=== PATIENT | male | born 1940 | race Caucasian/White ===

== ENCOUNTER → 2016-11-02 | Outpatient (CLI) | payer OTHER ==
--- NOTE | 2016-11-02 15:53 | US ---
Sonography of the Abdominal Aorta CLINICAL HISTORY: 76-year-old male with aortic atherosclerosis. Rule out abdominal aortic aneurysm. TECHNIQUE: A curvilinear 5 MHz transducer was used to sonographically evaluate the abdominal aorta t o the aortoiliac bifurcation. Color Doppler was also used. COMPARISON STUDY: Right upper quadrant abdominal sonography. dated November 03, 2015, which included t he gallbladder. FINDINGS: The proximal abdominal aorta measures 2.9 x 2.7 cm; the mid-abdominal aorta measures 2.2 x 2.1 cm; the distal abdominal aorta measures 1.9 x 1.7 cm. The proximal right common iliac artery brie ures 1.5 x 1.4 cm. and the left common iliac artery measures 1.4 x 1.4 cm. There is some atherosclero tic plaque noted throughout the aortoiliac vascular tree. IMPRESSION: Atherosclerotic features. With no sonographic evidence of an abdominal aortic aneurysm.
== END ==
LOC: BRMIMAGING 13:21
PROVIDERS: ATTEND Family Medicine
DX: I70.0 Atherosclerosis of aorta (principal)